=== PATIENT | male | born 1975 ===

== ENCOUNTER 2023-05-08 12:35 | Emergency (ER) | payer MEDICAID | END 2023-05-08 14:11 | disposition home or self-care (01) | LOC: MW.ED 12:35 | DX: R51.9 Headache, unspecified (principal); M79.10 Myalgia, unspecified site; E78.00 Pure hypercholesterolemia, unspecified; K21.9 Gastro-esophageal reflux disease without esophagitis; E66.9 Obesity, unspecified; Z68.29 Body mass index [BMI] 29.0-29.9, adult; Z86.16 Personal history of COVID-19; Z79.899 Other long term (current) drug therapy | CPT/HCPCS: 99283 ==